=== PATIENT | female | born 1985 | race Caucasian/White ===

== ENCOUNTER 2020-06-05 10:00 | Outpatient (RCR) | payer MEDICAID, SELFPAY | END 2020-06-07 11:07 | disposition other institution (70) | LOC: HO.PT 10:00 | PROVIDERS: Visit Provider Internal Medicine | DX: M54.5 Low back pain (principal) | CPT/HCPCS: 97110; 97140 ==

== ENCOUNTER 2021-10-21 14:05 | Outpatient (REF) | payer MEDICAID, SELFPAY ==
--- NOTE | ~2021-10-21 | XR_ITS ---
EXAMINATION: XR FOOT, RIGHT CLINICAL INFORMATION: Pain in right foot COMPARISON: None TECHNIQUE: AP, lateral, and oblique views of the right foot. FINDINGS: The bones and soft tissues are normal. No fracture. Alignment is anatomic. Joint spaces are maintained. XR/XR foot RT min 3V IMPRESSION: Normal right foot.
== END 2021-10-21 14:06 | disposition home or self-care (01) ==
LOC: HO.XRAY 14:05
PROVIDERS: Visit Provider Internal Medicine
DX: M79.671 Pain in right foot (principal)
CPT/HCPCS: 73630

== ENCOUNTER 2022-12-05 10:36 | Outpatient (REF) | payer MEDICAID, SELFPAY ==
--- NOTE | ~2022-12-05 | XR_ITS ---
EXAMINATION: XR ABDOMEN KUB CLINICAL INDICATION: Left flank pain COMPARISON: None available. TECHNIQUE: AP view of the abdomen. FINDINGS: The bowel gas pattern is normal with no evidence of ileus or obstruction. No unusual soft tissue calcifications are noted. The bones are unremarkable. XR/XR KUB IMPRESSION: Unremarkable examination.
== END 2022-12-05 10:37 | disposition home or self-care (01) ==
LOC: HO.XRAY 10:36
PROVIDERS: PCP Internal Medicine; Visit Provider Student in an Organized Health Care Education/Training Program
DX: R10.9 Unspecified abdominal pain (principal)
CPT/HCPCS: 74018

== ENCOUNTER 2024-02-23 13:11 | Outpatient (REF) | payer MEDICAID, SELFPAY ==
[2024-02-23 14:03] LABS: MANUAL DIFF FLAG NO
[2024-02-23 14:13] LABS: Basophils Absolute Auto 0.1 X10*3/uL (0.0-0.2); Basophils Percent Auto 0.6 % (0-2); Eosinophils Absolute Auto 0.2 X10*3/uL (0.0-0.4); Eosinophils Percent Auto 1.4 % (0-4); Hematocrit 34.7 % (37.0-47.0); Hemoglobin 11.8 g/dl (12.0-16.0); Imm Gran Abs Auto 0.06 X10*3/uL (0.00-0.03); Imm Gran Pct Auto 0.4 % (0.0-0.4); Lymphocytes Absolute Auto 3.5 X10*3/uL (1.2-4.9); Lymphocytes Percent Auto 24.9 % (20-40); Mean Corpuscular Hemoglobin 27.1 pg (27.0-33.0); Mean Corpuscular Volume 79.8 fL (80.0-98.0); Mean Platelet Volume 12.2 fL (9.4-12.3); Monocytes Absolute Auto 0.7 X10*3/uL (0.1-1.2); Monocytes Percent Auto 4.8 % (2-11); Neutrophils Absolute Auto 9.6 x10*3/uL (2.0-8.3); Neutrophils Percent Auto 67.9 % (45-73); Platelet Count 364 X10*3/uL (160-400); Red Blood Count 4.35 X10*6/uL (4.20-5.50); Red Cell Distribution Width 15.4 % (11.0-16.0); White Blood Count 14.2 X10*3/uL (4.8-10.8)
[2024-02-23 14:33] LABS: Alanine Aminotransferase 14 U/L (0-31); Albumin Level 4.1 g/dL (3.5-5.0); Alkaline Phosphatase 66 U/L (39-117); Anion Gap 10 (12-20); Aspartate Amino Transferase 15 U/L (5-31); Bilirubin Total 0.2 mg/dL (0.0-1.0); Blood Urea Nitrogen 12 mg/dL (9-16); Carbon Dioxide 23 mmol/L (22-29); Chloride 110 mmol/L (96-108); Cholesterol 151 mg/dL (<200); Estimated Glomerular Filt Rate > 60; Glucose Random 81 mg/dL (60-115); HDL Cholesterol 41 mg/dL (>40); LDL Cholesterol Calculated 99 mg/dL (<100); Potassium 3.9 mmol/L (3.3-5.1); Sodium 139 mmol/L (135-145); Total Protein 7.1 g/dL (6.5-8.0); Triglycerides 59 mg/dL (<150)
[2024-02-23 14:50] LABS: TSH reflex Free T4 0.51 uIU/mL (0.32-4.0)
== END 2024-02-23 13:12 | disposition home or self-care (01) ==
LOC: HO.CHCLDS 13:11
PROVIDERS: Visit Provider Internal Medicine
DX: D72.828 Other elevated white blood cell count (principal)
CPT/HCPCS: 36415; 80053; 80061; 84443; 85025

== ENCOUNTER 2025-05-23 12:37 | Outpatient (REF) | payer MEDICAID, SELFPAY ==
--- OUTSIDE RECORDS SUMMARY | 2025-05-22 13:15 | XMS_ITS | Encounter Summary ---
Author Organization [employer] Address [address] [facility] [address] [place] [address] Care Team Providers Care Bowling Ball Assembler Name Role Phone Suraj Simpson MD Primary Care Prov ider Reason for Visit * Reason Comments [facility] Follow-Up Other Encounter Details Date Type Department Care Team ([facility] Contact Info) Description 05/22/2025 1:15 PM EDT Office Visit [facility] [address] [place] [address] Mark Penny MD [address] [place] [address] Mood disorder (CMS/HCC) (Primary Dx); Cigarette nicotine dependence without complication; Encounter for immunization; STI in female; Dietary counseling; Exercise counseling; Class 1 obesity due to excess calories without serious comorbidity with body mass index (BMI) of 30.0 to 30.9 in adult; Microcytic anemia Social History Tobacco Use Types Packs/Day Years Used Date Smoking Tobacco: Every Day Cigarettes Passive Smoke Exposure: Never Smokeless Tobacco: Never Alcohol Use Standard Drinks/Week Comments Never 0 (1 standard drink = 0.6 oz pur e alcohol) Depression Answer Date Recorded Patient Health Questionnaire-9 Score 0 12/17/2022 Housing Stability Answer Date Recorded What is your housing situation today? I have lemuel naqvi 06/15/[address] you li ve. Do you have problems with any of the following? None of the above 06/15/2023 Food Insecurity Answer Date Recorded Within the past 12 months, y ou worried that your food would run out before you got money to buy more: Never True 06/15/2023 Within the past 12 months,th e food you bought just didn't last and you didn't have enough money to get more: Never True 01/2023 Transportation Answer Date Recorded In the past 12 months, has l ack of transportation kept you from medical appts, meetings, work or from getting things needed for daily living? No 06/15/2023 Utilities Answer Date Recorded In the past 12 months, has t he electric, gas, oil or water company threatened to shut off services in your home? No 06/15/2023 Depression Answer Date Recorded Patient Health Questionnaire-2 Score 0 12/17/2022 Comments No Sex and Gender Information Value Date Recorded Sex Assigned at Female 06/09/2022 10:27 AM EDT Legal Sex Female 10:27 AM EDT Gender Identity Female 06/09/2022 10:27 AM EDT Sexual Orientation Straight 06/09/2022 10 :27 AM EDT documented as of this encounter Last Filed Vital Signs Vital Sign Reading Time Taken Comments Blood Pressure 135/87 05/22/2025 1:19 PM EDT Pulse 78 05/22/2025 1:19 PM EDT Temperature - - Respiratory Rate 20 05/22/2025 1:19 PM EDT Oxygen Saturation 99% 05/22/2025 1:19 PM EDT Inhaled Oxygen Concentration - - Weight 83.5 kg (184 lb) 05/22/2025 1:19 PM EDT Height 165.1 cm (5' 5 ) 05/22/2025 1:19 PM EDT Body Mass Index 30.62 05/22/2025 1:19 PM EDT documented in this encounter Progress Notes * Mark Penny MD - 05/22/2025 1:15 PM EDT SUBJECTIVE Kavita Macedo is a 39 y.o. female who presents for [facility] Follow-Up Other. HPI Admitted at [facility] from to 05/15/2025 because she was overusing Ambien. Pt states she was taking up to 10 pills a day. She had some insurance issues. When she realized she was having difficulties w/ controlling herself she asked to be sectioned and be transferred to [facility]. During her stay, she received her medication and improved. Denies SI/HI during the evaluation. She feels overall well and is asymptomatic today. MS Kavita Macedo requests an STD screen. No Vaginal symptoms reported. Problem List[1] Allergies[2] Medications Ordered Prior to Encounter[3] Review of Systems Constitutional: Negative for activity change, appetite change, chills and diaphoresis. HENT: Negative for dental problem, drooling, ear discharge, ear pain and hearing loss. Eyes: Negative for pain, discharge and itching. Respiratory: Negative for cough, choking and chest tightness. Cardiovascular: Negative for chest pain and leg swelling. Gastrointestinal: Negative for blood in stool and diarrhea. Genitourinary: Negative for difficulty urinating, dyspareunia, dysuria, enuresis, flank pain, frequency and genital sores. Musculoskeletal: Negative for arthralgias, gait problem and joint swelling. Skin: Negative for pallor. Neurological: Negative for dizziness, seizures, speech difficulty, light- headedness and numbness. Psychiatric/Behavioral: Negative for behavioral problems, confusion and decreased concentration. OBJECTIVE Vitals: 05/22/25 1319 BP: 135/87 BP Location: Left arm Patient Position: Sitting BP Cuff Size: Adult Pulse: 78 Resp: 20 SpO2: 99% Weight: 184 lb (83.5 kg) Height: 5' 5 (1.651 m) Physical Exam Constitutional: General: She is not in acute distress. Appearance: Normal appearance. She is obese. She is not ill-appearing, toxic- appearing or diaphoretic. Cardiovascular: Rate and Rhythm: Normal rate. Pulmonary: Effort: Pulmonary effort is normal. Neurological: General: No focal deficit present. Mental Status: She is alert. Psychiatric: Mood and Affect: Mood normal. Assessment/Plan Assessment/Plan Diagnoses and all orders for this visit: Mood disorder ([facility]) Comments: To follow up w/ the therapist and psychiatrist. NO change made by us today. Orders: - CBC auto differential; Future - Comprehensive Metabolic Panel; Future Cigarette nicotine dependence without complication Not interested in getting help to quit smoking for now Pt would like to quit on her own. Encounter for immunization - FLU VACCINE TRIVALENT [phone] (Fluarix) 19 yrs + STI in female Comments: Safe sexual practices. Orders: - Chlamydia/N. Gonorrhoeae RNA, TMA, Urogenitial - HIV-1/2 Antigen and Antibodies, Fourth Generation, with Reflexes; Future - Hepatitis C Antibody with Reflex to HCV, RNA, Quantitative, Real-Time PCR; Future - RPR (Monitor) with Reflex to Titer; Future - Urinalysis w/reflex microscopic; Future - Trichomonas vaginalis RNA, Qualitative, TMA, Males; Future Dietary counseling Exercise counseling Class 1 obesity due to excess calories without serious comorbidity with body mass index (BMI) of 30.0 to 30.9 in adult Dietary Recommendations: Fruits, vegetables, whole grains, protein foods, and fat-free or low-fat dairy products are healthychoices. Eat different types of protein foods in your diet. This can include seafood, lean meats, poultry, beans, peas, lentils, nuts, seeds, soy products, and eggs. Limit foods and beverages higher in added sugars, saturated fat, and sodium. Exercise Recommendations: At least 150 minutes of moderate-intensity physical activity per week, or an equivalent combinationof moderate- and vigorous-intensity activity - Comprehensive Metabolic Panel; Future - Lipid Panel, Standard; Future - TSH with Reflex to Free T4; Future Microcytic anemia - CBC auto differential; Future - Comprehensive Metabolic Panel; Future [1] Patient Active Problem List Diagnosis Chronic bilateral low back pain without sciatica Physical exam Screening for cervical cancer Mood disorder (CMS/HCC) Accidental ingestion of caustic alkali Urinary frequency Left flank pain Leukocytosis Cigarette nicotine dependence without complication [2] Allergies Allergen Reactions Aspirin Anaphylaxis Morphine Anaphylaxis Oxycodone-Acetaminophen Anaphylaxis Acetaminophen Oxycodone [3] Current Outpatient Medications on File Prior to Visit Medication Sig Dispense Refill buPROPion XL (Wellbutrin XL) 150 MG 24 hr tablet Take 150 mg by mouth in the morning. doxepin (SINEquan) 10 MG capsule Take 10 mg by mouth at bedtime. hydrOXYzine pamoate (Vistaril) 25 MG capsule Take 1-2 capsules by mouth if needed in the morning, at noon, and at bedtime for anxiety. lamoTRIgine (LaMICtal) 100 MG tablet Take 1 tablet by mouth Once per day. traZODone (Desyrel) 50 MG tablet Take 1-3 tablets by mouth if needed at bedtime for sleep. venlafaxine XR (Effexor XR) 150 MG 24 hr capsule Take 2 capsules by mouth in the morning. [DISCONTINUED] cloNIDine (Catapres) 0.1 MG tablet Take 1 tablet by mouth if needed at bedtime (sleep). [DISCONTINUED] hydrOXYzine HCl (Atarax) 50 MG tablet Take 50 mg by mouth if needed at bedtime. [DISCONTINUED] lamoTRIgine (LaMICtal) 150 MG tablet Take 1 tablet by mouth at bedtime. [DISCONTINUED] nicotine (Nicoderm CQ) 14 MG/24HR patch Place 1 patch on the skin 1 (one) time each day at the same time for 14 days. 14 patch 0 [DISCONTINUED] nicotine (Nicoderm CQ) 21 MG/24HR patch Place 1 patch on the skin 1 (one) time each day at the same time. 42 patch 0 [DISCONTINUED] nicotine (Nicoderm CQ) 7 MG/24HR patch Place 1 patch on the skin 1 (one) time each day at the same time for 14 days. 14 patch 0 [DISCONTINUED] venlafaxine XR (Effexor XR) 150 MG 24 hr tablet Take 2 tablets (300 mg) by mouth with breakfast. Do not crush, chew, or split. 120 tablet 0 No current facility-administered medications on file prior to visit. documented in this encounter Plan of Treatment Scheduled Orders Name Type Priority Associated Diagnoses Orde r Schedule Chlamydia/N. Gonorrhoeae RNA, TMA, Urogenitial Microbiology Routine STI in female Ordered: 05/22/2025 HIV-1/2 Antigen and Antibodies, Fourth Generation, with Reflexes Lab Routine STI in female Expected: 05/22/2025 (Approximate), Expires: 05/22/2026 Hepatitis C Antibody with Reflex to HCV, RNA, Quantitative, Real-Time PCR Lab Routine STI in female Expected: 05/22/2025, Expires: 05/22/2026 RPR (Monitor) with Reflex to Titer Lab Routine STI in female Expected: 05/22/2025, Expires: 05/22/2026 Urinalysis w/reflex microscopic Lab Routine STI in female Expected: 05/22/2025, Expires: 05/22/2026 Trichomonas vaginalis RNA, Qualitative, TMA, Males Lab Routine STI in female Expected: 05/22/2025, Expires: 05/22/2026 documented as of this encounter Procedures Procedure Name Priority Date/Time Associated Diagnosis Comments TSH W/REFLEX TO FT4 Routine 05/23/2025 1 2:41 PM EDT Class 1 obesity due to excess calories without serious comorbidity with body mass index (BMI) of 30.0 to 30.9 in adult CBC WITH AUTO DIFFERENTIAL Routine 05/23/2025 12:41 PM EDT Mood disorder (CMS/HCC) Microcytic anemia LIPID PANEL, STANDARD Routine 05/23/2025 12:41 PM EDT Class 1 obesity due to excess calories without serious comorbidity with body mass index (BMI) of 30.0 to 30.9 in adult COMPREHENSIVE METABOLIC PANEL Routine 05/23/2025 12:41 PM EDT Mood disorder (CMS/HCC) Class 1 obesity due to excess calories without serious comorbidity with body mass index (BMI) of 30.0 to 30.9 in adult Microcytic anemia documented in this encounter Results * TSH with Reflex to Free T4 (05/23/2025 12:41 PM EDT) TSH reflex Free T4 1.34 0.32 - 4.0 uIU/mL [facility] Blood Venous blood specimen / Unknown 05/23/2025 12:41 PM EDT 05/23/2025 1:47 PM EDT us Mark Penny MD LAB BLOOD ORDERABLES Final Result [facility] [address], [place] [phone] * (ABNORMAL) Lipid Panel, Standard (05/23/2025 12:41 PM EDT) Triglycerides 164(H) <150 mg/dL [facility] Comment:Desirable Triglyceri de: less than 150 mg/dLBorderline High Triglyceride 150-199 mg/dLHigh Triglyceride: 200-499 mg/dLVery High Triglyceride: greater than or equal to 5OO mg/dL Cholesterol 163 <200 mg/dL [facility] Comment:Desirable Cholestero l: less than 200 mg/dLBorderline High Cholesterol: 200-239 mg/dLHigh Cholesterol: greater than 239 mg/dL LDL Cholesterol Calculated 93 <100 mg/dL [facility] Comment:Desirable LDL: less than 100 mg/dLNear Optimal/Above Optimal LDL: 110- 129 mg/dLBorderline High LDL: 130-159 mg/dLHigh LDL: 160-189 mg/dLVery High LDL: greater than or equal to 190 mg/dL HDL Cholesterol 38(L) >40 mg/dL [facility] Comment:Desirable HDL: great er than 40 mg/dL Note: This HDL assay may give artificially low results in patients with liver disease. Blood Venous blood specimen / Unknown 05/23/2025 12:41 PM EDT 05/23/2025 1:47 PM EDT us Mark Penny MD LAB BLOOD ORDERABLES Final Result [facility] [address] [place] [phone] * (ABNORMAL) Comprehensive Metabolic Panel (05/23/2025 12:41 PM EDT) Sodium 143 135 - 145 mmol/L [facility] Potassium 3.9 3.3 - 5.1 mmol/L [facility] Chloride 111(H) 96 - 108 mmol/L [facility] Carbon Dioxide 27 22 - 29 mmol/L [facility] Anion Gap 9(L) 12 - 20 [facility] Urea Nitrogen (BUN) 9 9 - 16 mg/dL [facility] Creatinine, Serum 0.67 0.5 - 1.4 mg/dL [facility] Estimated Glomerular Filt Rate >60 [facility] Comment:Chronic Kidney Disea se: Estimated GFR < 60 mL/min/[id number] Kidney Disease: Estimated GFR < 15 mL/min/1.73m2 Glucose 77 60 - 115 mg/dL [facility] Calcium 9.1 8.4 - 10.2 mg/dL [facility] Bilirubin, Total 0.4 0.0 - 1.0 mg/dL [facility] Aspartate Amino Transferase 15 5 - 31 U/L [facility] Alanine Aminotransferase 16 0 - 31 U/L [facility] Total Protein 7.1 6.5 - 8.0 g/dL [facility] Albumin Level 4.2 3.5 - 5.0 g/dL [facility] Alkaline Phosphatase 74 39 - 117 U/L [facility] Blood Venous blood specimen / Unknown 05/23/2025 12:41 PM EDT 05/23/2025 1:47 PM EDT us Mark Penny MD LAB BLOOD ORDERABLES Final Result [facility] [address] [place] [phone] * CBC auto differential (05/23/2025 12:41 PM EDT) White Blood Count 10.7 4.8 - 10.8 X10*3/uL [facility] Red Blood Count 4.58 4.20 - 5.50 X10*6/uL [facility] Hemoglobin 12.5 12.0 - 16.0 g/dl [facility] Hematocrit 37.0 37.0 - 47.0 % [facility] Mean Corpuscular Volume 80.8 80.0 - 98.0 fL [facility] Mean Corpuscular Hemoglobin 27.3 27.0 - 33.0 pg [facility] Mean Corpuscular HGB Conc 33.8 31.0 - 35.0 g/dl [facility] Red Cell Distribution Width 15.7 11.0 - 16.0 % [facility] Platelet Count 384 160 - 400 X10*3/uL [facility] Mean Platelet Volume 11.1 9.4 - 12.3 fL [facility] Neutrophils Percent Auto 64.1 45 - 73 % [facility] Imm Gran Pct Auto 0.3 0.0 - 0.4 % [facility] Lymphocytes Percent Auto 24.4 20 - 40 % [facility] Monocytes Percent Auto 6.6 2 - 11 % [facility] Eosinophils Percent Auto 3.9 0 - 4 % [facility] Basophils Percent Auto 0.7 0 - 2 % [facility] NRBC Pct Auto 0.0 0.0 - 0.2 /100WBC [facility] Neutrophils Absolute Auto 6.9 2.0 - 8.3 x10*3/uL [facility] Imm Gran Abs Auto 0.03 0.00 - 0.03 X10*3/uL [facility] Lymphocytes Absolute Auto 2.6 1.2 - 4.9 X10*3/uL [facility] Monocytes Absolute Auto 0.7 0.1 - 1.2 X10*3/uL [facility] Eosinophils Absolute Auto 0.4 0.0 - 0.4 X10*3/uL [facility] Basophils Absolute Auto 0.1 0.0 - 0.2 X10*3/uL [facility] NRBC Abs Auto 0.000 0.0 - 0.012 X10*3/uL [facility] Blood Venous blood specimen / Unknown 05/23/2025 12:41 PM EDT 05/23/2025 1:55 PM EDT us Mark Penny MD LAB BLOOD ORDERABLES Final Result Performing Organization Address City/State/[facility] Co de Phone Number [facility] [address] [place] [phone] documented in this encounter Visit Diagnoses Diagnosis Mood disorder (CMS/[facility])- Primary Unspecified episodic mood disorder Cigarette nicotine dependence without complication Encounter for immunization STI in female Dietary counseling Dietary surveillance and counseling Exercise counseling Class 1 obesity due to excess calories without serious comorbidity with body mass index (BMI) of 30.0 to 30.9 in adult Microcytic anemia Unspecified iron deficiency anemia documented in this encounter Additional Health Concerns Assessment Noted Time PHQ-9 Depression Total Score: 0 12/18/19 23 3:13 PM EDT documented as of this encounter Care Teams Bowling Ball Assembler Relationship Specialty Start Date End Date Suraj Simpson MD [address] [place] [phone] PCP - General Internal Medicine 01/03/20 documented as of this encounter
[2025-05-23 13:58] LABS: MANUAL DIFF FLAG NO
[2025-05-23 14:01] LABS: Hematocrit 37.0 % (37.0-47.0); Hemoglobin 12.5 g/dl (12.0-16.0); Imm Gran Abs Auto 0.03 X10*3/uL (0.00-0.03); Imm Gran Pct Auto 0.3 % (0.0-0.4); Lymphocytes Absolute Auto 2.6 X10*3/uL (1.2-4.9); Mean Corpuscular HGB Conc 33.8 g/dl (31.0-35.0); Mean Corpuscular Hemoglobin 27.3 pg (27.0-33.0); Mean Corpuscular Volume 80.8 fL (80.0-98.0); NRBC Abs Auto 0.000 X10*3/uL (0.0-0.012); NRBC Pct Auto 0.0 /100WBC (0.0-0.2); Platelet Count 384 X10*3/uL (160-400); Red Blood Count 4.58 X10*6/uL (4.20-5.50); White Blood Count 10.7 X10*3/uL (4.8-10.8)
[2025-05-23 14:29] LABS: Alanine Aminotransferase 16 U/L (0-31); Albumin Level 4.2 g/dL (3.5-5.0); Alkaline Phosphatase 74 U/L (39-117); Anion Gap 9 (12-20); Aspartate Amino Transferase 15 U/L (5-31); Blood Urea Nitrogen 9 mg/dL (9-16); Calcium 9.1 mg/dL (8.4-10.2); Carbon Dioxide 27 mmol/L (22-29); Chloride 111 mmol/L (96-108); Cholesterol 163 mg/dL (<200); Estimated Glomerular Filt Rate > 60; HDL Cholesterol 38 mg/dL (>40); Potassium 3.9 mmol/L (3.3-5.1); Sodium 143 mmol/L (135-145); Total Protein 7.1 g/dL (6.5-8.0); Triglycerides 164 mg/dL (<150)
--- OUTSIDE RECORDS SUMMARY | 2025-05-23 15:15 | XMS_ITS | Clinical Summary ---
Author Organization [employer] Address [address] [facility] [address] [place] [address] Care Team Providers Care Balance Wheel Screw Hole Driller Name Role Phone Suraj Simpson MD Primary Care Prov ider Allergies Active Allergy Reactions Criticality Noted Date Comments Acetaminophen 07/16/2016 Aspirin Anaphylaxis High 07/17/2016 Morphine Anaphylaxis High 12/03/2022 Oxycodone 07/16/2016 Oxycodone-Acetaminophen Anaphylaxis High 12/03/2022 Medications * This document contains information received from the source organization and may not represent a complete record from that organization. buPROPion XL (Wellbutrin XL) 150 MG 24 hr tablet Take 150 mg by mouth in the morning. 11/27/19 23 Active traZODone (Desyrel) 50 MG tablet Take 1-3 tablets by mouth if needed at bedtime for sleep. Active doxepin (SINEquan) 10 MG capsule Take 10 mg by mouth at bedtime. Active venlafaxine XR (Effexor XR) 150 MG 24 hr capsule Take 2 capsules by mouth in the morning. 03/12/20 25 Active lamoTRIgine (LaMICtal) 100 MG tablet Take 1 tablet by mouth Once per day. 03/17/20 25 Active hydrOXYzine pamoate (Vistaril) 25 MG capsule Take 1-2 capsules by mouth if needed in the morning, at noon, and at bedtime for anxiety. 03/17/20 25 Active venlafaxine XR (Effexor XR) 150 MG 24 hr tabletIndicati ons:Mood disorder (CMS/HCC) Take 2 tablets (300 mg) by mouth with breakfast. Do not crush, chew, or split. 120 tablet 09/04/19 025 Discontinued(Me d list cleanup (will not trigger notification to Pharmacy)) lamoTRIgine (LaMICtal) 150 MG tablet Take 1 tablet by mouth at bedtime. 11/27/19 025 Discontinued(Me d list cleanup (will not trigger notification to Pharmacy)) hydrOXYzine HCl (Atarax) 50 MG tablet Take 50 mg by mouth if needed at bedtime. 11/27/19 025 Discontinued(Me d list cleanup (will not trigger notification to Pharmacy)) nicotine (Nicoderm CQ) 21 MG/24HR patch Place 1 patch on the skin 1 (one) time each day at the same time. 42 patch 12/09/19 025 Discontinued(Me d list cleanup (will not trigger notification to Pharmacy)) nicotine (Nicoderm CQ) 14 MG/24HR patch Place 1 patch on the skin 1 (one) time each day at the same time for 14 days. 14 patch 12/09/19 025 Discontinued(Me d list cleanup (will not trigger notification to Pharmacy)) nicotine (Nicoderm CQ) 7 MG/24HR patch Place 1 patch on the skin 1 (one) time each day at the same time for 14 days. 14 patch 12/09/19 025 Discontinued(Me d list cleanup (will not trigger notification to Pharmacy)) cloNIDine (Catapres) 0.1 MG tablet Take 1 tablet by mouth if needed at bedtime (sleep). 03/12/20 025 Discontinued(Me d list cleanup (will not trigger notification to Pharmacy)) Active Problems Problem Noted Date Diagnosed Date Cigarette nicotine dependence without complicati on 12/10/2023 Assessment & Plan (11/14/2024 11:31 AM EDT): Encouraged smoking cessation, follow up as needed Assessment & Plan (12/10/2023 1:32 PM EDT): Patient interested in quitting cigarette smoke, discussed benefits as well as risk, will send nicotine patches Urinary frequency 12/17/2022 Left flank pain 12/17/2022 Assessment & Plan (12/17/2022 6:07 PM EDT): No cva tenderness, no reported fever/chills, no hematuria, u/a was unremarkable, most likely muscle strain, discussed x ray results, told to apply cold pack, rest Leukocytosis 12/17/2022 Assessment & Plan (12/17/2022 6:09 PM EDT): Will order new labs for further evaluation, DDX smoker, recent alkali ingestion, recent ganital cellulitis, iron def anemia, idiopathic, maligancy??? Accidental ingestion of caustic alkali 3 Chronic bilateral low back pain without sciatica 09/16/2022 Assessment & Plan (10/07/2023 2:12 PM EST): Controlled with otc/home remedies, no changes will be made Assessment & Plan (09/16/2022 11:34 AM EST): Patient completed PT, recommended to keep stretching exercises, may use heat/cold pads and rest when active, avoid heavy lifting Physical exam 09/16/2022 Assessment & Plan (03/31/2024 10:21 PM EDT): Unremarkable physical examination, encouraged exercise, decrease daily calorie intake Assessment & Plan (09/16/2022 11:35 AM EST): Unremarkable examination, will place order for routine labs, Screening for cervical cancer 09/16/2022 Assessment & Plan (09/16/2022 11:35 AM EST): Will refer for pap smear Mood disorder 07/05/2018 Assessment & Plan (11/14/2024 11:28 AM EDT): Followed by psych, no suicidal/homicidal ideas, no changes will be amde Assessment & Plan (03/31/2024 10:23 PM EDT): Followed by psych, no suicidal/homicidal ideas reported Assessment & Plan (10/07/2023 2:13 PM EST): Followed by psych, no suicidal/homicidal ideas Encounters Date Type Department Care Team Description 05/22/2025 1:15 PM EDT Office Visit [facility] [address] [place] [address] Mark Penny MD Mood disorder (CMS/HCC) (Primary Dx); Cigarette nicotine dependence without complication; Encounter for immunization; STI in female; Dietary counseling; Exercise counseling; Class 1 obesity due to excess calories without serious comorbidity with body mass index (BMI) of 30.0 to 30.9 in adult; Microcytic anemia 05/22/2025 Travel 05/11/2025 Patient Outreach [facility] [address] [place] [address] Suraj Simpson MD Transition Of Care (Tcm) (HDF- scheduled ) from Last 3 Months Immunizations Immunization Administration Dates Next Due HPV 9-Valent 07/24/2020 Hep A, Adult 01/11/2019 Hep B, adult 07/24/2020,03/23/2019,01/11/2019 Influenza injectable quadriv alent IIV4 with preservative 09/16/2022,05/19/2019,07/05/2018,2016 Influenza injectable quadriv alent preservative free 06/08/2020 Influenza, seasonal, injecta ble, preservative free 05/22/2025 Tdap 02/23/2016,10/04/2014 Social History Tobacco Use Types Packs/Day Years Used Date Smoking Tobacco: Every Day Cigarettes Passive Smoke Exposure: Never Smokeless Tobacco: Never Tobacco Cessation:Ready to Q uit: Not Asked; Counseling Given: Not Answered Alcohol Use Standard Drinks/Week Comments Never 0 [...] Orientation Straight 06/09/2022 10 :27 AM EDT Last Filed Vital Signs Vital Sign Reading Time Taken Comments Blood Pressure 135/87 05/22/2025 1:19 PM EDT Pulse 78 05/22/2025 1:19 PM EDT Temperature 37.1 C (98.7 F) 02/19/2024 10:54 AM EDT Respiratory Rate 20 05/22/2025 1:19 PM EDT Oxygen Saturation 99% 05/22/2025 1:19 PM EDT Inhaled Oxygen Concentration - - Weight 83.5 kg (184 lb) 05/22/2025 1:19 PM EDT Height 165.1 cm (5' 5 ) 05/22/2025 1:19 PM EDT Body Mass Index 30.62 05/22/2025 1:19 PM EDT Plan of Treatment Health Maintenance Due Date Last Done Comments Disability Screening 1987 Alcohol/Substance Use Screening 1999 Family Planning (PISQ) 2002 Pneumococcal Vaccine: Pediatrics (0 to 5 Years) and At-Risk Patients (6 to 49) Years (1 of 2 - PCV) 2006 HPV Vaccines (2 - 3-dose series) 08/21/2020 07/24/2020 Depression Screening 12/18/2023 12/17/2022, 12/18/19 23 SDOH Screening 11/15/2024 11/16/2023 Pap Smear 12/02/2025 12/02/2022 DTaP/Tdap/Td Vaccines (3 - Td or Tdap) 02/22/2026 02/23/2016, 10/04/2014 COVID-19 Vaccine (1 - season) 2026 Postponed from 04/10/2025 (Patient Refused) Tobacco Screening 05/22/2026 05/22/2025 Cervical Cancer Screening 12/03/2027 HPV/Cotest 12/03/2027 12/02/2022 Lipid Panel 02/22/2029 05/23/2025, 02/07, 09/16/2022, Additional history exists Zoster Vaccines (1 of 2) 2037 RSV Patients and Patients Aged 60 years or older (1 - 1-dose 75+ series) 2062 Hepatitis A Vaccines Aged Out 01/11/2019 No long er eligible based on patient's age to complete this topic Hepatitis B Vaccines Completed 07/24/2020, 03/23/2019, 01/11/2019 HIV Screening Completed 09/16/2022, 05/29/2021 Hepatitis C Screening Completed 09/16/2022, 021 Influenza Vaccine Completed 05/22/2025, , 06/08/2020, Additional history exists HIB Vaccines Aged Out No longer eligi ble based on patient's age to complete this topic IPV Vaccines Aged Out No longer eligi ble based on patient's age to complete this topic Meningococcal B Vaccine Aged Out No l onger eligible based on patient's age to complete this topic Meningococcal Vaccine Aged Out No charles herlinda eligible based on patient's age to complete this topic RSV under 20 months Aged Out No longe r eligible based on patient's age to complete this topic Rotavirus Vaccines Aged Out No longer eligible based on patient's age to complete this topic Procedures Procedure Name Priority Date/Time Associated Diagnosis Comments TSH W/REFLEX TO FT4 Routine 05/23/2025 1 2:41 PM EDT Class 1 obesity due to excess calories without serious comorbidity with body mass index (BMI) of 30.0 to 30.9 in adult LIPID PANEL, STANDARD Routine 05/23/2025 12:41 PM EDT Class 1 obesity due to excess calories without serious comorbidity with body mass index (BMI) of 30.0 to 30.9 in adult COMPREHENSIVE METABOLIC PANEL Routine 05/23/2025 12:41 PM EDT Mood disorder (CMS/HCC) Class 1 obesity due to excess calories without serious comorbidity with body mass index (BMI) of 30.0 to 30.9 in adult Microcytic anemia CBC WITH AUTO DIFFERENTIAL Routine 05/23/2025 12:41 PM EDT Mood disorder (CMS/HCC) Microcytic anemia IMAGE-GUIDED PAP W/AGE BASED SCR,W/CT/NG/TRICH Routine 12/02/2022 2:20 PM EDT Cervical cancer screening HEPATITIS C AB W/REFL TO HCV RNA, QN, PCR Routine 09/16/2022 11:51 AM EST Physical exam HIV 1 RNA, QN PCR W/RFL KARON (RTI,PI,INTEGRASE) Routine 09/16/2022 11:51 AM EST Physical exam from Last 3 Months or Most Recently Relevant to Health Maintenance Results * TSH with Reflex to Free T4 (05/23/2025 12:41 PM EDT) TSH reflex Free T4 1.34 0.32 - 4.0 uIU/mL [facility] Blood Venous blood specimen / Unknown 05/23/2025 12:41 PM EDT 05/23/2025 1:47 PM EDT us Mark Penny MD LAB BLOOD ORDERABLES Final Result [facility] [address] [place] [phone] * CBC auto differential (05/23/2025 12:41 PM EDT) White Blood Count 10.7 4.8 - 10.8 X10*3/uL [facility] Red Blood Count 4.58 4.20 - 5.50 X10*6/uL [facility] Hemoglobin 12.5 12.0 - 16.0 g/dl [facility] Hematocrit 37.0 37.0 - 47.0 % [facility] Mean Corpuscular Volume 80.8 80.0 - 98.0 fL [facility] Mean Corpuscular Hemoglobin 27.3 27.0 - 33.0 pg [facility] Mean Corpuscular HGB Conc 33.8 31.0 - 35.0 g/dl [facility] Red Cell Distribution Width 15.7 11.0 - 16.0 % [facility] Platelet Count 384 160 - 400 X10*3/uL [facility] Mean Platelet Volume 11.1 9.4 - 12.3 fL [facility] Neutrophils Percent Auto 64.1 45 - 73 % [facility] Imm Gran Pct Auto 0.3 0.0 - 0.4 % [facility] Lymphocytes Percent Auto 24.4 20 - 40 % [facility] Monocytes Percent Auto 6.6 2 - 11 % [facility] Eosinophils Percent Auto 3.9 0 - 4 % [facility] Basophils Percent Auto 0.7 0 - 2 % [facility] NRBC Pct Auto 0.0 0.0 - 0.2 /100WBC [facility] Neutrophils Absolute Auto 6.9 2.0 - 8.3 x10*3/uL [facility] Imm Gran Abs Auto 0.03 0.00 - 0.03 X10*3/uL [facility] Lymphocytes Absolute Auto 2.6 1.2 - 4.9 X10*3/uL [facility] Monocytes Absolute Auto 0.7 0.1 - 1.2 X10*3/uL [facility] Eosinophils Absolute Auto 0.4 0.0 - 0.4 X10*3/uL [facility] Basophils Absolute Auto 0.1 0.0 - 0.2 X10*3/uL [facility] NRBC Abs Auto 0.000 0.0 - 0.012 X10*3/uL [facility] Blood Venous blood specimen / Unknown 05/23/2025 12:41 PM EDT 05/23/2025 1:55 PM EDT Mark Penny MD LAB BLOOD ORDERABLES Final Result Performing Organization Address [facility] Co de Phone Number [facility] [address] [place] [address] [phone] * (ABNORMAL) Lipid Panel, Standard (05/23/2025 12:41 PM EDT) Triglycerides 164(H) <150 mg/dL [facility] Comment:Desirable Triglyceri de: less than 150 mg/dLBorderline High Triglyceride 150-199 mg/dLHigh Triglyceride: 200-499 mg/dLVery High Triglyceride: greater than or equal to 5OO mg/dL Cholesterol 163 <200 mg/dL [facility] Comment:Desirable Cholestero l: less than 200 mg/dLBorderline High Cholesterol: 200-239 mg/dLHigh Cholesterol: greater than 239 mg/dL LDL Cholesterol Calculated 93 <100 mg/dL [facility] Comment:Desirable LDL: less than 100 mg/dLNear Optimal/Above Optimal LDL: 110- 129 mg/dLBorderline High LDL: 130-159 mg/dLHigh LDL: 160-189 mg/dLVery High LDL: greater than or equal to 190 mg/dL HDL Cholesterol 38(L) >40 mg/dL [facility] Comment:Desirable HDL: great er than 40 mg/dL Note: This HDL assay may give artificially low results in patients with liver disease. Blood Venous blood specimen / Unknown 05/23/2025 12:41 PM EDT 05/23/2025 1:47 PM EDT us Mark Penny MD LAB BLOOD ORDERABLES Final Result Performing Organization Address City/[facility]/ZIP Co de Phone Number [facility] [address] [place] [address] [phone] * (ABNORMAL) Comprehensive Metabolic Panel (05/23/2025 12:41 PM EDT) Sodium 143 135 - 145 mmol/L [facility] Potassium 3.9 3.3 - 5.1 mmol/L [facility] Chloride 111(H) 96 - 108 mmol/L [facility] Carbon Dioxide 27 22 - 29 mmol/L [facility] Anion Gap 9(L) 12 - 20 [facility] Urea Nitrogen (BUN) 9 9 - 16 mg/dL [facility] Creatinine, Serum 0.67 0.5 - 1.4 mg/dL [facility] Estimated Glomerular Filt Rate >60 [facility] Comment:Chronic Kidney Disea se: Estimated GFR < 60 mL/min/1.82h4Vgmggn Kidney Disease: Estimated GFR < 15 mL/min/1.73m2 Glucose 77 60 - 115 mg/dL [facility] Calcium 9.1 8.4 - 10.2 mg/dL [facility] Bilirubin, Total 0.4 0.0 - 1.0 mg/dL [facility] Aspartate Amino Transferase 15 5 - 31 U/L [facility] Alanine Aminotransferase 16 0 - 31 U/L [facility] Total Protein 7.1 6.5 - 8.0 g/dL [facility] Albumin Level 4.2 3.5 - 5.0 g/dL [facility] Alkaline Phosphatase 74 39 - 117 U/L [facility] Blood Venous blood specimen / Unknown 05/23/2025 12:41 PM EDT 05/23/2025 1:47 PM EDT us Mark Penny MD LAB BLOOD ORDERABLES Final Result [facility] [address] [place] [phone] * Image-Guided Pap with Age-Based Screening??with CT/NG,??Trichomonas (12/02/2022 2:20 PM EDT) Comment [employer] Comment: This order for age-based cervical cancer and STI screening follows ACOG guidelines(PB 168, 140, [id number]). See individual assays for performing site location. Clinical Information: Routine exam [facility] LMP: NONE GIVEN [employer] [facility] Prev. PAP: NONE GIVEN [employer] [facility] Prev. BX: NONE GIVEN [employer] [facility] SOURCE: None given [facility] Statement Of Adequacy: [facility] Comment: Satisfactory for evaluation. Endocervical/transformation zone component present. Interpretation/Re sult: Negative for intraepithelial lesion or malignancy. [facility] COMMENT: This Pap test has been evaluated with computer assisted technology. [employer] Tier Lift Operator: Ceci Tresatat Comment: SXA, CT(ASCP) CT screening location: [place] [address] (Always Message) [employer] Comment: EXPLANATORY NOTE: The Pap is a screening test for cervical cancer. It is not a diagnostic test and is subject to false negative and false positive results. It is most reliable when a satisfactory sample, regularly obtained, is submitted with relevant clinical findings and history, and when the Pap result is evaluated along with historic and current clinical information. HPV nRNA E6/E7 Not Detected Not Detected [employer] Comment: Methodology: Dye Room Helper-Mediated Amplification This assay detects E6/E7 viral messenger RNA (mRNA) from 14 high-risk HPV types (16,18,31,33,35,39,45,51,52,56,58,59,66,68). Cervical sources are required for HPV testing. If a vaginal source from a patient who has had a total hysterectomy with removal of cervix was submitted, please contact the testing laboratory for alternative testing options. For additional information, please refer to http://education.[address]/faq/JCC717r3 (This link if provided for information/ educational purposes only.) Chlamydia trachomatis RNA, TMA, Urogenital NOT DETECTED NOT DETECTED [facility] Neisseria gonorrhoeae RNA, TMA, Urogenital NOT DETECTED NOT DETECTED [employer] (Always Message) Que [facility] Comment: The analytical performance characteristics of this assay, when used to test SurePath(TM) specimens have been determined by [facility]. The modifications have not been cleared or approved by the FDA. This assay has been validated pursuant to the CLIA regulations and is used for clinical purposes. For additional information, please refer to https://[employer]est[employer].[address]/faq/GRW105 (This link is being provided for information/ educational purposes only.) Trichomonas vaginalis, QL, TMA, PAP Vial NOT DETECTED NOT DETECTED [facility] [employer] Comment: The analytical performance characteristics of this assay have been determined by [facility]. The modifications have not been cleared or approved by the FDA. This assay has been validated pursuant to the CLIA regulations and is used for clinical purposes. For additional information, please refer to [email or web address]/ faq/Trichomonastma (This link is being provided for information/ educational purposes only.) Cytology specimen container (physical object) 12/02/2022 2:20 PM EDT 12/03/2022 6:25 AM EDT Rosina Price [facility] LAB CYTOLOGY ORDERABLES F inal Result [facility] [address], [place] [address] [facility] [address] [place] [address] * HIV-1 RNA, Quantitative, Real-Time PCR with Reflex to Genotype (RTI, PI, Integrase) (09/16/2022 11:51 AM EST) HIV 1 RNA, QN PCR NOT DETECTED copies/mL [facility] [employer] [facility], HIV 1 RNA, QN PCR NOT DETECTED Log copies/mL [facility] [facility], Comment: REFERENCE RANGE: NOT DETECTED copies/mL NOT DETECTED Log copies/mL This test was performed using Real-Time Polymerase Chain Reaction. Reportable range is 20 to 10,000,000 copies/mL (1.30-7.00 Log copies/mL). 09/16/2022 11:5 1 AM EST 09/16/2022 11:52 AM EST Narrative [facility] - 09/20/2022 9:45 PM EST FASTING:YES FASTING: YES Suraj Fernandez MD LAB BLOOD ORDERABL ES Final Result Performing Organization Address [facility]/ZIP Co de Phone Number [employer] [address] [place] [address], [facility] [place] [address] [facility], [address] [place] [address] * Hepatitis C Antibody with Reflex to HCV, RNA, Quantitative, Real-Time PCR (09/16/2022 11:51 AM EST) Pathologist [facility] [place] Hepatitis C Antibody NON-REACT SHANIKA NON-REACT SHANIKA [employer] Index <0.02 <1.00 [employer] Comment: HCV antibody was non-reactive. There is no laboratory evidence of HCV infection. In most cases, no further action is required. However, if recent HCV exposure is suspected, a test for HCV RNA (test code 02216) is suggested. For additional information please refer to http://education.[address]/faq/PNI73f6 (This link is being provided for informational/ educational purposes only.) Blood Venous blood specimen / Unknown 09/16/2022 11:51 AM EST 09/16/2022 11:52 AM EST Narrative [facility] - 09/20/2022 9:45 PM EST FASTING:YES FASTING: YES Suraj Fernandez MD LAB BLOOD ORDERABL ES Final Result Performing Organization Address [facility]/ZIP Co de Phone Number [employer] [address] [place] [address], [place] [address] [facility] [employer] [address] [place] [address], ([address]) [place] [address] from Last 3 Months or Most Recently Relevant to Health Maintenance Insurance [facility] C3 Care Teams Balance Wheel Screw Hole Driller Relationship Specialty Start Date End Date Suraj Simpson MD [address] [place], [place] [address] [place] [address] PCP - General Internal Medicine 01/03/20
--- OUTSIDE RECORDS SUMMARY | 2025-05-23 15:15 | XMS_ITS | Clinical Summary ---
Author Organization [facility] Address [address] [place] [address] Care Team Providers Care Hand Tile Maker Name Role Phone Unavailable Primary Care Provider Unavailabl e Social History Tobacco Use Types Packs/Day Years Used Date Smoking Tobacco: Never Assessed Comments Unknown Sex and Gender Information Value Date Recorded Sex Assigned at Not on file Legal Sex Female 5:41 PM EST Gender Identity Not on file Sexual Orientation Not on file Plan of Treatment Health Maintenance Due Date Last Done Comments DTaP,Tdap,and Td Vaccines (1 - Tdap) 2006 Hepatitis B Vaccines (1 of 3 - 19+ 3-dose series) 2006 Cervical Cancer Screening: P ap Smear 2008 HPV Vaccines (1 - 3-dose SCD M series) 2014 HIV Screening 03/01/2024 Hepatitis C Screening 03/01/2024 Social Influencers of Health Screening 03/01/2024 Depression Screening 08/10/2024 COVID-19 Vaccine (1 - 2023-2 5 season) 2025 Influenza Vaccine (#1) 2025 RSV Immunization Adult Patie nts (1 - 1-dose 75+ series) 2062 HIB Vaccines Aged Out No longer eligi ble based on patient's age to complete this topic Hepatitis A Vaccines Aged Out No long er eligible based on patient's age to complete this topic IPV Vaccines Aged Out No longer eligi ble based on patient's age to complete this topic MMR Vaccines Aged Out No longer eligi ble based on patient's age to complete this topic Meningococcal ACWY Vaccine Aged Out N o longer eligible based on patient's age to complete this topic Meningococcal B Vaccine Aged Out No l onger eligible based on patient's age to complete this topic Pneumococcal Vaccine: Pediat rics (0 to 5 Years) and At-Risk Patients (6 to 49 Years) Aged Out No longer eligible b ased on patient's age to complete this topic RSV Immunization Patients Un mary kate 20 months Aged Out No longer eligible b ased on patient's age to complete this topic Varicella Vaccines Aged Out No longer eligible based on patient's age to complete this topic
--- OUTSIDE RECORDS SUMMARY | 2025-05-23 15:15 | XMS_ITS | Encounter Summary ---
Author Organization [employer] Address [address] [place] [address] Care Team Providers Care Storage Garage Manager Name Role Phone Suraj Simpson MD Primary Care Prov ider Encounter Details Date Type Department Care Team (Latest Contact Info) Description 05/22/2025 Travel Social History Tobacco Use Types Packs/Day Years Used Date Smoking Tobacco: Every Day Cigarettes Passive Smoke Exposure: Never Smokeless Tobacco: Never Alcohol Use Standard Drinks/Week Comments Never 0 (1 standard drink = 0.6 oz pur e alcohol) Depression Answer Date Recorded Patient Health Questionnaire-9 Score 0 12/17/2022 Housing Stability Answer Date Recorded What is your housing situation today? I have lemuelobey navqi 06/15/[address] you li [...] AM EDT documented as of this encounter Plan of Treatment Not on file documented as of this encounter Visit Diagnoses Not on filedocumented in this encounter Additional Health Concerns Assessment Noted Time PHQ-9 Depression Total Score: 0 12/18/19 23 3:13 PM EDT documented as of this encounter Care Teams Storage Garage Manager Relationship Specialty Start Date End Date Suraj Simpson MD [address] [place] [id number] PCP - General Internal Medicine 01/03/20 documented as of this encounter
[2025-05-23 18:26] LABS: Appearance Urine Clear; Glucose Urine UA Negative (Negative); PH 7.0 (5.0-9.0); Specific Gravity - Urine 1.015 (1.005-1.025); UMIC TRIGGER UACC YES
[2025-05-24 03:42] LABS: HIV Num 1 0.05 S/CO (0.00-0.99); ~HepC Num1 0.16 S/CO (0.00-0.79); ~Hepatitis C Antibody Nonreactive (Nonreactive)
== END 2025-05-23 12:38 | disposition home or self-care (01) ==
LOC: HO.CHCLDS 12:37
PROVIDERS: Visit Provider Internal Medicine
DX: Z11.3 Encounter for screening for infections with a predominantly sexual mode of transmission (principal); Z11.59 Encounter for screening for other viral diseases; Z11.4 Encounter for screening for human immunodeficiency virus [HIV]; F39 Unspecified mood [affective] disorder; E66.811 Obesity, class 1; A64 Unspecified sexually transmitted disease; E66.09 Other obesity due to excess calories; D50.9 Iron deficiency anemia, unspecified; Z68.30 Body mass index [BMI] 30.0-30.9, adult
CPT/HCPCS: 36415; 80053; 80061; 81001; 84443; 85025; 86592; 86803; 87389